=== PATIENT | female | born 1985 | race Caucasian/White ===

== ENCOUNTER → 2017-03-31 10:16 | Outpatient (CLI) | payer SELFPAY ==
[2017-03-31 12:10] LABS: Absolute Lymphocyte Count 1.43 X10^3/ul (0.83-4.51); Absolute Neutrophil Count 3.9 X10^3/uL (2.0-7.7); Basophil# 0.02 X10^3/uL; Basophil% 0.3 % (0-1); Eosinophils% 1.7 % (0-5); Hematocrit 43.2 % (37-47); Hemoglobin 14.2 g/dl (12.0-15.0); Lymphocyte # 1.43 X10^3/ul (4.0); Lymphocyte % 23.8 % (19-41); Mean Corp Hgb Conc 32.9 g/gl (32-36); Mean Corpuscular Hgb 27.6 pg (27.0-32.0); Mean Corpuscular Volume 83.9 fL (81-99); Mean Platelet Vol. 9.6 fl (6.2-12.0); Monocyte# 0.55 X10^3/uL; Monocyte% 9.1 % (0-10); Neutrophil # 3.92 X10^3/uL (2.7-7.7); Neutrophil % 65.1 % (47-70); Platelet Count 367 K/mm3 (150-450); RBC Distribution Width CV 13.1 % (11.6-14.6); RBC Distribution Width SD 39.2 fl (35.1-43.9); Red Blood Count 5.15 M/mm3 (4.2-5.4)
[2017-03-31 12:11] LABS: POSITIVE COUNT NO; POSITIVE DIFFERENTIAL NO; POSITIVE MORPHOLOGY NO
[2017-03-31 13:00] LABS: Free T3 2.7 pg/mL (2.18-3.98); T4 Free Direct 1.03 ng/dL (0.76-1.46); Thyroid Stim Hormone (TSH) 2.78 uIU/mL (0.358-3.74)
[2017-04-01 14:08] LABS: ANTINUCLEAR ANTIBODIES DIRECT Positive (Negative); Anti-Centromere B Ab <0.2 AI (0.0-0.9); Anti-Chromatin <0.2 AI (0.0-0.9); Anti-Jo <0.2 AI (0.0-0.9); Anti-Scleroderma-70 AB <0.2 AI (0.0-0.9); RNP Ab 6.2 AI (0.0-0.9); SJOGREN'S Anti-SS-A test < 0.2 AI (0.0-0.9); SJOGREN'S Anti-SS-B test 0.2 AI (0.0-0.9); Smith Ab <0.2 AI (0.0-0.9)
[2017-04-01 14:47] LABS: Anti-dsDNA Ab 1 IU/mL (0-9)
== END ==
PROVIDERS: Family Provider Family Medicine; PCP Family Medicine; Visit Provider Family Medicine
DX: R41.9 Unspecified symptoms and signs involving cognitive functions and awareness (principal); G25.3 Myoclonus; R13.10 Dysphagia, unspecified; E03.9 Hypothyroidism, unspecified; R53.83 Other fatigue
CPT/HCPCS: 36415; 84439; 84443; 84481; 85025; 86038; 86225; 86235

== ENCOUNTER → 2017-05-01 11:49 | Outpatient (CLI) | payer SELFPAY ==
[2017-05-01 13:16] LABS: CPK Total, Creatine Kinase 46 U/L (26-192)
== END ==
PROVIDERS: Family Provider Family Medicine; PCP Family Medicine; Visit Provider Family Medicine
DX: G25.3 Myoclonus (principal); R76.8 Other specified abnormal immunological findings in serum
CPT/HCPCS: 36415; 82550

== ENCOUNTER 2021-10-04 08:35 | Outpatient (CLI) | payer MEDICAID, SELFPAY ==
[2021-10-04 08:58] VITALS: BP 101/57; PULSE 118; TEMP 37.2
[2021-10-04 09:02] VITALS: BMI 27.8
[2021-10-04 09:50] LABS: ROM Internal Control Test YES-OK TO RESULT pt. (Internal QC); ROM Patient Test Negative (Negative)
--- NOTE | 2021-10-13 07:33 | OB.TRI.HP_ITS ---
HPI - General General Date of Service: 10/04/21 HPI Narrative LETITIA MANRIQUEZ, is a 36 F who presents with N/V and headaches. Maternal Data Information Final DAVID: 10/20/21 Gestational age: 37&5 [facility] Medical History (Updated 10/13/21 @ 07:[address] Stevie Naylor MD) COVID-19 affecting in third trimester Nausea and vomiting during Home Medications 1 tab PO/SL DAILY 10/04/21 [History Last Taken 10/03/21 12:00] hydroxychloroquine 200 mg tablet (Plaquenil) 200 mg PO DAILY 10/04/21 [History Last Taken 10/03/21 21:00] liver extract 3 tab PO BID 10/04/21 [History Last Taken 10/03/21 21:00] Allergy/AdvReac Type Severity Reaction Status Date / Time Pertussis Vaccines Allergy Unknown Verified 11/11/14 17:24 doxycycline AdvReac Pain in Verified 10/04/21 09:04 joints Social History Smoking Status: Never smoker NST FHR Rate Baby A Baseline: 150 Variability:: Moderate Accelerations:: 15 x 15 Decelerations:: Variable NST Reactive:: Yes Uterine Activity:: Irregular Assessment & Plan (1) Nausea and vomiting during : (2) COVID-19 affecting in third trimester: COMMENT: 37&5 PLAN: Reactive NTS for COVID in
== END 2021-10-04 10:31 | disposition home or self-care (01) ==
LOC: WPOUT 08:45 → WP 08:45
PROVIDERS: PCP Family Medicine; Visit Provider Obstetrics & Gynecology
DX: O98.513 Other viral diseases complicating pregnancy, third trimester (principal); U07.1 COVID-19; Z3A.37 37 weeks gestation of pregnancy; O36.8330 Maternal care for abnormalities of the fetal heart rate or rhythm, third trimester, not applicable or unspecified
CPT/HCPCS: 59025; 59050; 84112; 87426; 99218; G0378

== ENCOUNTER 2021-10-22 09:22 | Inpatient (IN) | payer MEDICAID, SELFPAY ==
[2021-10-22] VITALS (17 sets, daily range): BP systolic 93–120; BP diastolic 52–77; PULSE 64–91; RESP 16; TEMP 35.8–36.8; O2SAT 97–100; BMI 27.6
[2021-10-22 10:23] LABS: Absolute Lymphocyte Count 0.86 X10^3/uL (0.83-4.51); Absolute Neutrophil Count 4.4 X10^3/uL (2.0-7.7); Basophil# 0.01 X10^3/uL; Basophil% 0.2 % (0-1); Eosinophil# 0.02 X10^3/uL; Eosinophils% 0.4 % (0-5); Hematocrit 32.8 % (37-47); Hemoglobin 10.6 g/dL (12.0-15.0); Lymphocyte # 0.86 X10^3/ul (0.83-4.51); Lymphocyte % 15.1 % (19-41); Mean Corp Hgb Conc 32.3 g/dL (32-36); Mean Corpuscular Volume 80.6 fL (81-99); Mean Platelet Vol. 10.8 fl (6.2-12.0); Monocyte# 0.45 X10^3/uL; Monocyte% 7.9 % (0-10); NRBC Flagged by Analyzer 0 % (0-5); Neutrophil # 4.35 X10^3/uL (2.7-7.7); Platelet Count 167 K/mm3 (150-450); RBC Distribution Width CV 13.4 % (11.6-14.6); RBC Distribution Width SD 38.4 fl (35.1-43.9); Red Blood Count 4.07 M/mm3 (4.2-5.4); White Blood Count 5.7 K/mm3 (4.4-11.0)
[2021-10-22] MEDS: Lactated Ringers 1,000 ML 999 ML IV (10:26)
[2021-10-22] MEDS: Sodium Citrate/Citric Acid 30 ML UDC PO (10:31)
[2021-10-22] MEDS: Acetaminophen 500 MG Tablet 1000 MG PO ×3 (10:31→22:38)
[2021-10-22] MEDS: Lactated Ringers 1,000 ML 150 ML IV (11:10)
--- NOTE | 2021-10-22 12:03 | HP.PCM.OB_ITS ---
HPI - General General Date of Admission: 10/22/21 Date of Service: 10/22/21 HPI Narrative LETITIA MANRIQUEZ, is a 36 F who presents for repeat . Maternal Data Information Final DAVID: 10/20/21 Gestational age: 40&2 PFSH PFSH Medical History Asthma COVID-19 affecting in third trimester Mixed connective tissue disease Nausea and vomiting during hemorrhage Request for sterilization Home Medications 1 tab PO/SL DAILY 10/04/21 [History Last Taken 10/03/21 12:00] hydroxychloroquine 200 mg tablet (Plaquenil) 200 mg PO DAILY 10/04/21 [History Last Taken 10/03/21 21:00] liver extract 3 tab PO BID 10/04/21 [History Last Taken 10/03/21 21:00] Allergy/AdvReac Type Severity Reaction Status Date / Time Pertussis Vaccines Allergy Unknown Verified 11/11/14 17:24 doxycycline AdvReac Pain in Verified 10/04/21 09:04 joints Surgical History Previous section Social History Smoking Status: Never smoker History Elective abortions Hx Para 5 Spontaneous abortions Hx # Term Pregnancies Ectopic pregnancies Hx # Pregnancies Multiple births # of living children Vital Signs Vital Signs Vital Signs: 10/22/21 09:35 10/22/21 09:35 10/22/21 09:40 Temperature Temperature Source Pulse Rate 86 83 Respiratory Rate Blood Pressure Blood Pressure Mean Blood Pressure Source Blood Pressure Position Blood Pressure Location Pulse Ox 100 Oxygen Delivery Method 10/22/21 09:40 10/22/21 10:52 Temperature 97.6 F L Temperature Source Temporal Pulse Rate 83 Respiratory Rate 16 Blood Pressure 120/69 Blood Pressure Mean 86 Blood Pressure Source Monitor Blood Pressure Position Sitting Blood Pressure Location Left Arm Pulse Ox 100 100 Oxygen Delivery Method Room Air Weight Weight: 161 lb Body Mass Index (BMI) 27.6 Physical Exam Const alert and oriented x3 General Appearance: cooperative Chest inspection of chest normal GI soft to palpation, non-tender and non-distended Inspection: gravid Labs Labs Labs: Blood Type B POSITIVE Antibody Screen NEGATIVE Hct 32.8 % (37-47) L Hgb 10.6 g/dL (12.0-15.0) L Miscellaneous Test See [facility] H&P Assessment & Plan (1) Request for sterilization: COMMENT: @ 40&2 PLAN: Counseled on R/B/A including risks of regret & failure. Patient wishes to proceed with bilateral salpingectomy. (2) Previous section: PLAN: Counseled on R/B/A of MOD and patient wishes to proceed with repeat c- section. Informed consent signed. Plan for routine PP care (3) Mixed connective tissue disease:
--- NOTE | 2021-10-22 12:08 | EX.PCM.OBRPT ---
Maternal Data Information Final DAVID: 10/20/21 Gestational age: 40&2 Details Operative Information Date of Procedure: 10/22/21 Pre-Operative Diagnosis: (1) Prior section (2) Sterilization request Post-Operative Diagnosis: Same Indications for : Repeat Elective and Desires elective sterilization Indications Narrative: The patient was taken to the operating room where spinal anesthesia was placed & found to be adequate. She was prepped and draped in the dorsal supine position with a leftward tilt. A Pfannenstiel skin incision was made approximately 2 cm above the symphysis pubis and carried through to the underlying fascia with the scalpel. The fascia was incised incised in the midline and extended laterally with the Hi scissors. The rectus muscles were in the midline and the peritoneum was entered carefully and bluntly. The peritoneal incision was stretched and the bladder blade was inserted. Vesicouterine peritoneum was tented up, incised & then bladder flap created gently. The uterine incision was made in a low transverse fashion with the scalpel and extended superiorly and inferiorly with blunt dissection. The infant's head was brought to the incision in the flexed position and delivered without difficulty. The head was gently guided to allow delivery of the anterior and posterior shoulders. The body then delivered with fundal pressure in the standard fashion. The 3VC cord was clamped and cut in delayed fashion. The infant was handed off to the waiting pediatric care coordinator. The placenta was delivered with fundal massage and gentle traction in the standard fashion. The uterus was exteriorized and cleared of clots and debris. The uterine incision was closed with #1 Vicryl suture in a running locked fashion. Monocryl suture was used in an imbricating fashion. The incision was examined and was found to be hemostatic. Attention was then turned to the fallopian tubes. The right fallopian tube was grasped, cauterized & excised using the ligasure. Excellent hemostasis of the right tubal excision site was confirmed. Then the left fallopian tube was grasped, cauterized & excised using the ligasure. Excellent hemostasis of the left tubal excision site was confirmed. The uterus was returned to the abdominal cavity. After irrigating Oralia was placed over the uterine incision as some areas were denuded (but hemostatic). Oralia was also placed over the tubal excision sites which were again confirmed to be hemostatic. The peritoneum was closed with vicryl suture in running fashion The rectus muscle was examined and any bleeding was Bovie cauterized. The fascia was closed with PDS suture in a running standard fashion. The subcutaneous tissue was examining and any bleeding was Bovie cauterized. The subcutaneous tissue was reapproximated with interrupted sutures. The skin was closed in a subcuticular fashion by the SENIOR USER EXPERIENCE ARCHITECT while I was present in the labor & delivery unit. The remainder of the procedure was performed by me with assistance. All sponge, lap, and needle counts were correct. The patient was taken to her room for recovery in a stable condition. Classification: Scheduled Procedure Type: low transverse lead accountant #1: Kadi Mccollum Type of Anesthesia: Spinal Antibiotic Given: Ancef 2 grams IV x1 Drain: Calix to straight drain Estimated Blood Loss: 800ml Fluids Replaced: 800ml Procedure Start Time: 12:25 Procedure Stop Time: 13:20 Findings Description of Procedure: Normal maternal uterus and adnexa Presentation: Positive for Vertex Amniotic Membrane Rupture Type: Artificial Amniotic Fluid Description: Clear Placental Delivery Description: Expressed Placenta Disposition: [facility] Specimen(s) Sent to Pathology: bilateral fallopian tubes Cord Vessel Description: 3 Vessels Cord Entanglement: None A Gender: Female (Laila, weight = 4035g) (1 minute): 9 (5 minute): 9 Delayed Cord Clamping: Yes Complications Complications: None
[2021-10-22] MEDS: Cefazolin 2 GM in 0.9% Normal Saline 100 ML IV (12:15)
[2021-10-22] MEDS: Oxytocin 30 units/NS 500 ml 30 UNITS/500 ML IV.SOLN 167 UNITS IV (13:35)
--- NOTE | 2021-10-22 13:41 | FALS_PTH ---
PATIENT: LETITIA MANRIQUEZ LOC: [facility] U#:[id number] AGE/SX: 36/F ROOM: WP005 RE10/22/[address]: Dr. Stevie Naylor MD : 1985 BED: 1 DIS: 10/23/2021 SPEC #: [id number] RECD: 10/23/21 08:12 STATUS: TORRIE KELSEY #: [id number] LEATHA: 10/22/21 13:[address]: Stevie Naylor DEPT: SURGICAL PATHOLOGY RECD BY: Nas Suero ENTERED: 10/23/21 08:14 SP TYPE: FALL TUBES OTHR DR: Dr. Semaj Bruno DO Tissues: Fallopian tube Procedures: Surgery Specimen Level IV HEADER OPERATION: Tubal ligation PRE-OP DIAGNOSIS: Sterilization TISSUE SUBMITTED: Fallopian tubes, tag on right MICROSCOPIC DIAGNOSIS Bilateral fallopian tubes, salpingectomy: Left fallopian tube with mild chronic inflammation and focal reactive mesothelial proliferation. Right fallopian tube with focal decidual changes, chronic inflammation and reactive mesothelial proliferation. KALI:abbi 10/25/2021 COMMENT Case has been reviewed in consultation with Dr. Dixon who concurs with the above diagnosis. IDC:ZEN MICROSCOPIC DESCRIPTION Slides are reviewed. GROSS DESCRIPTION Received in fixative is one container labeled with the patient's name and designated bilateral fallopian tubes. The specimen consists of two fallopian tubes with an average length of 9.5 cm and has an average diameter of 1 cm. Both fallopian tubes have normal fimbriated ends. No mass lesions are identified. Speech Clinician sections are submitted in two cassettes as follows: 1 - fallopian tube without suture, 2 - fallopian tube with suture. / ZEN:abbi 10/23/2021 The rest of the specimen is submitted in six more cassettes as follows: 3 - fimbrial end, one tube, 4??fimbrial end, second tube, 5 & 6 - tube without suture, 7 & 8 - tube with suture. / KALI:abbi 10/24/2021 TC:5 CPT: 78671 x2
[2021-10-22 13:49] LABS: Pathology Specimen OB SEE PATHOLOGY REPORT
[2021-10-22] MEDS: Ketorolac 30 MG/ML Syringe IV ×2 (14:21→20:41)
[2021-10-22] MEDS: Lactated Ringers 1,000 ML 100 ML IV (15:58)
[2021-10-22] MEDS: Hydroxychloroquine 200 MG Tablet PO (22:39)
[2021-10-23 00:30] VITALS: BP 99/64; PULSE 85; RESP 16; TEMP 36.3; O2SAT 99
[2021-10-23] MEDS: 0.9% Saline Lock 10 ML Syringe IV ×2 (02:32→08:33)
[2021-10-23] MEDS: Ketorolac 30 MG/ML Syringe IV ×2 (02:32→08:32)
[2021-10-23 04:43] VITALS: BP 95/56; PULSE 73; RESP 16; TEMP 36.3; O2SAT 97
[2021-10-23] MEDS: Acetaminophen 500 MG Tablet 1000 MG PO ×2 (04:48→10:37)
[2021-10-23 04:58] LABS: Hematocrit 28.1 % (37-47); Hemoglobin 8.9 g/dL (12.0-15.0); Mean Corp Hgb Conc 31.7 g/dL (32-36); Mean Corpuscular Hgb 26.3 pg (27.0-32.0); Mean Corpuscular Volume 83.1 fL (81-99); Mean Platelet Vol. 10.2 fl (6.2-12.0); Platelet Count 151 K/mm3 (150-450); RBC Distribution Width CV 13.3 % (11.6-14.6); RBC Distribution Width SD 39.8 fl (35.1-43.9); Red Blood Count 3.38 M/mm3 (4.2-5.4); White Blood Count 7.8 K/mm3 (4.4-11.0)
[2021-10-23 07:47] VITALS: BP 101/57; PULSE 79; RESP 15; TEMP 36.2; O2SAT 96
--- NOTE | 2021-10-23 08:18 | DCINST_ITS ---
Discharge Instructions Diet Discharge Diet: No restrictions Activity Discharge Activity: May Not Drive (Until you feel strong enough to slam on a brake or turn a steering wheel sharply) and May Shower May resume sexual activity in: 6 weeks Ice area for (Minutes): 15 Weight Bearing Status: Weight bearing as tolerated Lifting Restrictions: Nothing heavier than baby Dressing / Incision Call your doctor if your incision/area has: Continuous Slow Oozing, Sudden Increased Bleeding, Increased Pain/ Swelling, Increased Redness, Foul Smelling Discharge and Swelling at the incision site Call your doctor if you observe: Fever of 101 or Higher, Coldness, Increased Pain, Numbness or Tingling, Change in Color, Inability to urinate, Inability to have a bowel movement, Using more than 1 pad per hour, Shortness of breath, Dizziness, Fainting spells, Swelling in the ankles, Chest pain, Increased palpitations (irregular heartbeat), Calf discomfort and Uncontrolled pain Suture Line Care: Avoid Pulling/Pushing and Avoid Pinching/Bending Remove Dressing in: 4 days Cleanse incision/area with: Soap & Water Follow Up Care Please Follow Up With: Stevie Naylor MD When: 1 week incision check 6 weeks visit Test Results: Test results from this visit will be discussed in further detail at your follow- up appointment, if applicable. Discharge Plan Admission Admit Date/Time: 10/22/21 09:22 Primary Reason for Your Visit: delivery Attending Provider: Stevie Naylor Primary Care Provider: Semaj Bruno Instructions Patient Instructions: After a Discharge Orders/Prescriptions Prescriptions: New oxycodone-acetaminophen [Endocet] 5-325 mg tablet 1 tab PO Q6H PRN (Reason: pain) 7 Days Qty: 10 0RF ibuprofen 600 mg tablet 600 mg PO Q6H PRN (Reason: pain) Qty: 30 0RF docusate sodium [Colace] 100 mg capsule 100 mg PO BID Qty: 30 0RF Continued hydroxychloroquine [Plaquenil] 200 mg Tablet 200 mg PO DAILY liver extract Tablet 3 tab PO BID 1 tab PO/SL DAILY Referrals / Follow Up: Semaj Bruno DO [Primary Care Provider] - Disposition Disposition (needs filled in before D/C Order can be placed): Home, Self Care
--- NOTE | 2021-10-23 08:20 | PCM.PN.OB ---
Subjective Subjective Pt doing well. Pain well controlled. Ambulating and voiding without difficulty. Rodrigue reg diet without N/V. She denies lightheadedness and dizziness. Lochia normal. without complaints. She would like to go home today. Objective Data Objective Data Vital Signs: Vital Signs Temp Pulse Resp BP Pulse Ox O2 Del Method 97.1 F L 79 15 101/57 L 96 Room Air 10/23/21 07:47 10/23/21 07:47 10/23/21 07:47 10/23/21 07:47 10/23/21 07:47 10/23/21 07:47 Oxygen Delivery Method Room Air Weight: 161 lb Body Mass Index (BMI) 27.6 Intake & Output: Intake and Output for Last 24 Hours 10/21/21 10/22/21 10/23/21 23:59 23:59 23:59 Intake Total 2865.33 / 2865.33 903.33 / 903.33 Output Total 1100 / 1100 700 / 700 Balance 1765.33 / 1765.33 203.33 / 203.33 Lab / Micro Data Result Diagrams: 10/23/21 04:50 Labs: Laboratory Results - last 24 hr 10/22/21 10:10: WBC 5.7, RBC 4.07 L, Hgb 10.6 L, Hct 32.8 L, MCV 80.6 L, MCH 26.0 L, MCHC 32.3, RDW Std Deviation 38.4, RDW Coeff of René 13.4, Plt Count 167, MPV 10.8, Immature Gran % (Auto) 0.400, Neut % (Auto) 76.0 H, Lymph % (Auto) 15.1 L, [place] % (Auto) 7.9, Eos % (Auto) 0.4, Baso % (Auto) 0.2, Absolute Neuts (auto) 4.4, Absolute Lymphs (auto) 0.86, Nucleated RBC % 0 10/22/21 10:10: Blood Type B POSITIVE, Antibody Screen NEGATIVE 10/23/21 04:50: WBC 7.8, RBC 3.38 L, Hgb 8.9 L, Hct 28.1 L, MCV 83.1, MCH 26.3 L, MCHC 31.7 L, RDW Std Deviation 39.8, RDW Coeff of René 13.3, Plt Count 151, MPV 10.2 Physical Exam Const alert and no apparent distress General Appearance: comfortable HEENT normocephalic Resp normal respiratory effort GI soft to palpation and non-distended GI Narrative: ATTP, dressing c/d/i, FF@U-1 Extremity normal to inspection and no calf tenderness Assessment & Plan (1) Delivery by section: PLAN: She is POD#1 s/p RLTCS with sterilization. Doing well. Reviewed blood work with patient and she denies any symptoms of anemia. EBL 800 cc at time of delivery per op report, and lochia normal. Discussed ok for discharge later today if she does ok ambulating throughout the day today, and she is to report symptoms of anemia. If symptoms of anemia today, will stay overnight to recheck CBC in AM. She desires discharge today. VSS and meeting milestones. Discharge instructions reviewed. Has follow up next week.
--- NOTE | 2021-10-23 08:47 | NURSING ---
Pt states she voided in hat around 0500 and nightshift nurse measured and threw away the hat from inside the toilet. 2nd void complete.
[2021-10-23] MEDS: Senna/Docusate Sodium 1 Tablet PO (10:35)
[2021-10-23 12:26] VITALS: BP 96/63; PULSE 86; RESP 16; TEMP 36.3
--- NOTE | 2021-10-30 15:17 | NURSING ---
Follow up phone call done today. Doing much better now that she has received a blood patch, needed to go to ER night. Instant relief after getting the blood patch. So much easier than my first c/s as far as the recovery goes (aside from the headache). Baby is doing well, was almost back to weight, loved Viviane she was awesome. Everyone was great during our stay too. Everyone was friendly. Good atmosphere in the hospital. 2020 C/S was at [facility]. Everyone was a lot friendlier at [place].
== END 2021-10-23 15:20 | disposition home or self-care (01) | DRG 539 ==
PROVIDERS: Admitting Provider Obstetrics & Gynecology; PCP Family Medicine; Visit Provider Obstetrics & Gynecology
PROC: 10D00Z1 Extraction of Products of Conception, Low, Open Approach (ICD-10-PCS; CPT 59514; principal; 2021-10-22 11:45)
DX: O34.219 Maternal care for unspecified type scar from previous cesarean delivery (principal); M35.1 Other overlap syndromes; J45.909 Unspecified asthma, uncomplicated; Z37.0 Single live birth; O99.52 Diseases of the respiratory system complicating childbirth; Z30.2 Encounter for sterilization; O99.892 Other specified diseases and conditions complicating childbirth; Z86.16 Personal history of COVID-19; Z3A.40 40 weeks gestation of pregnancy
CPT/HCPCS: 59025; 59050; 85025; 85027; 86850; 86900; 86901; 88302; 88305; 99218; J7120; A4216; G0378; J2405

== ENCOUNTER 2021-10-24 19:26 | Emergency (ER) | payer MEDICAID, SELFPAY ==
[2021-10-24 19:27] VITALS: BP 140/88; PULSE 93; RESP 15; TEMP 36.4; O2SAT 98; BMI 24.0
--- NOTE | 2021-10-24 19:35 | US_ITS ---
STUDY: VENOUS DOPPLER ULTRASOUND - RIGHT LOWER EXTREMITY REASON FOR EXAM: Female, 36 years old. LEG PAIN AND SWELLING RT POSTERIOR CALF PAIN TECHNIQUE: Ultrasound evaluation of the deep vein system to include guthrie-scale imaging and compression was performed. Guthrie-scale imaging and Doppler sonographic evaluation, including duplex spectral analysis and qualitative color flow sonography, was performed. COMPARISON: None. FINDINGS: Common Femoral Vein: Normal compression, spontaneity and augmentation. Normal color Doppler. Common Femoral Vein/Greater Saphenous Junction: Normal compression, spontaneity and augmentation. Normal color Doppler. Superficial Femoral Proximal: Normal compression, spontaneity and augmentation. Normal color Doppler. Superficial Femoral Middle: Normal compression, spontaneity and augmentation. Normal color Doppler. Superficial Femoral Distal: Normal compression, spontaneity and augmentation. Normal color Doppler. Popliteal Vein: Normal compression, spontaneity and augmentation. Normal color Doppler. Posterior Tibial Vein: Normal compression, spontaneity and augmentation. Normal color Doppler. Peroneal Vein: Normal compression, spontaneity and augmentation. Normal color Doppler. There is no demonstrated deep venous thrombosis. US/Venous Duplex Imag/Limited/Uni IMPRESSION: There is no demonstrated deep venous thrombosis. Electronically Signed: Vu Castano MD at 20:11 EDT ,
--- NOTE | 2021-10-24 20:25 | ED.VIS.LOWEX ---
HPI History of Present Illness Chief Complaint: Lower Extremity Injury Informant: patient and spouse/S.O. Narrative Narrative: She hadPatient presents with right calf cramping. This is the only cramp that she has. Delivery by 2 days ago. She did have spinal anesthesia. She has also been scheduled for a blood patch. She has been having headaches. But her headache is completely positional. If she lays flat it is gone. If she sits up it occurs again. This is her sixth delivery. She has never had eclampsia or preeclampsia. The incision is not bothering her. She is not having chest pain or dyspnea. She is not having nausea vomiting. She does not have generalized malaise. She has some edema more on the right leg than the left but it is not worsening. PFSH PFSH Medical History Asthma COVID-19 affecting in third trimester Mixed connective tissue disease Nausea and vomiting during hemorrhage Request for sterilization Home Medications 1 tab PO/SL DAILY 10/04/21 [History Last Taken 10/03/21 12:00] hydroxychloroquine 200 mg tablet (Plaquenil) 200 mg PO DAILY 10/04/21 [History Last Taken 10/03/21 21:00] liver extract 3 tab PO BID 10/04/21 [History Last Taken 10/03/21 21:00] docusate sodium 100 mg capsule (Colace) 100 mg PO BID #30 caps 10/23/21 [Rx Last Taken Unknown] ibuprofen 600 mg tablet 600 mg PO Q6H PRN pain #30 tabs 10/23/21 [Rx Last Taken Unknown] oxycodone-acetaminophen 5 mg-325 mg tablet (Endocet) 1 tab PO Q6H PRN pain 7 days #10 tabs 10/23/21 [Rx Last Taken Unknown] Allergy/AdvReac Type Severity Reaction Status Date / Time Pertussis Vaccines Allergy Unknown Verified 11/11/14 17:24 doxycycline AdvReac Pain in Verified 10/04/21 09:04 joints Surgical History Previous section Social History Smoking Status: Never smoker ROS ROS ED Constitutional Constitutional ED: Denies chills, fever(s) or subjective Eyes Eyes: Denies blurry vision, change in vision or diplopia ENT ENT ED: Denies rhinorrhea Cardiovascular Cardiovascular: Denies chest pain, palpitations or racing heartbeat Respiratory/Chest Respiratory/Chest: Denies cough or dyspnea Gastrointestinal Gastrointestinal: Denies nausea or vomiting Genitourinary Genitourinary ED: Denies hematuria Musculoskeletal Musculoskeletal: Reports other Details: Right calf pain per history of present illness. ; Denies back pain or neck pain Integumentary Denies abscess, Abrasions or rash Neurologic Neurologic: Reports headache(s); Denies paresthesias or weakness Endocrine Endocrinology: Denies polydipsia or polyuria Hematologic/Lymphatic Hematologic/Lymphatic: Denies easy bleeding or easy bruising Allergic/Immunologic Allergic/Immunologic ED: Denies urticaria EXAM Physical Exam Const Vital Signs: 10/24/21 19:27 10/24/21 20:59 10/24/21 21:23 Temperature 97.6 F L Temperature Source Temporal Pulse Rate 93 Respiratory Rate 15 Blood Pressure 140/88 H 115/77 110/78 Blood Pressure Mean 105 89 88 Pulse Ox 98 Oxygen Delivery Method Room Air Positive well nourished and well developed Constitutional Narrative: Patient is nontoxic. She is sitting upright at this time. However, that is for convenience of breast-feeding. It does exacerbate her headache a bit. General Appearance ED: well developed and NAD HEENT Reports moist mucous membranes atraumatic Neck full ROM and supple Chest Wall inspection of chest normal Resp normal respiratory effort, no retractions and clear to auscultation bilaterally Resp Narrative: No pain with deep breath. Auscultation: Negative for rales, rhonchi or wheezes Cardio regular rate, regular rhythm and no murmurs GI non-tender and non-distended Back/Spine no CVA tenderness Extremity Extremity Narrative: Patient has a trace amount of edema to both feet and ankles but it really does not go up higher. It might be just slightly more on the right than the left. No distended veins. No cord is felt. No notable asymmetry 10 cm below tibial tuberosity. Neuro oriented x3 Neuro Narrative: Reflexes are only about +1 in both patellar and Achilles areas. She does not have hyperreflexia. Sensorium / Orientation: alert Psych mental status grossly normal Skin Lesions: no lesions Rashes: no rashes MDM MDM MDM Narrative Medical decision making narrative: Patient had multiple blood pressure checks. Her blood pressure is way down now. She has no other symptoms consistent with preeclampsia. She does have a headache but it is completely positional. Ultrasound showed no DVT. Plan will be to get her home. She has an appointment for blood patch at 8:00 in the morning. Radiography Diagnostic Testing: Clinical Impression(s) from Imaging Studies Venous Duplex 10/24/21 19:35 IMPRESSION: There is no demonstrated deep venous thrombosis. Electronically Signed: Vu Castano MD at 20:11 EDT , Discharge Plan Triage Chief Complaint: Lower Extremity Injury ED Provider: Sanjeev Cuadra Dx/Rx/DC Orders Clinical Impression: Cramps of right lower extremity, Spinal headache Instructions: ED Leg Spasm, ED Headache After Spinal Tap ... Prescriptions: No Action oxycodone-acetaminophen [Endocet] 5-325 mg tablet 1 tab PO Q6H PRN (Reason: pain) 7 Days Qty: 10 0RF ibuprofen 600 mg tablet 600 mg PO Q6H PRN (Reason: pain) Qty: 30 0RF docusate sodium [Colace] 100 mg capsule 100 mg PO BID Qty: 30 0RF hydroxychloroquine [Plaquenil] 200 mg Tablet 200 mg PO DAILY liver extract Tablet 3 tab PO BID 1 tab PO/SL DAILY Primary Care Provider: Semaj Bruno Referrals: Semaj Bruno DO [Primary Care Provider] - 3-5 Days Activity Restrictions/Additional Instructions: Follow-up with appointment for blood patch in the morning. Disposition Disposition: Home, Self Care
[2021-10-24 20:59] VITALS: BP 115/77
[2021-10-24 21:23] VITALS: BP 110/78
== END 2021-10-24 22:04 | disposition home or self-care (01) ==
PROVIDERS: Emergency Provider Emergency Medicine; PCP Family Medicine; Visit Provider Emergency Medicine
DX: O99.355 Diseases of the nervous system complicating the puerperium (principal); Z86.16 Personal history of COVID-19; J45.909 Unspecified asthma, uncomplicated; M35.1 Other overlap syndromes; O99.53 Diseases of the respiratory system complicating the puerperium; O99.893 Other specified diseases and conditions complicating puerperium; R25.2 Cramp and spasm; G97.1 Other reaction to spinal and lumbar puncture
CPT/HCPCS: 93971; 99282

== ENCOUNTER 2021-10-25 08:01 | Day surgery (SDC) | payer MEDICAID, SELFPAY | END 2021-10-25 09:05 | disposition home or self-care (01) | PROVIDERS: PCP Family Medicine; Referring Provider Anesthesiology; Visit Provider Anesthesiology | PROC: 3E0R3GC Introduction of Other Therapeutic Substance into Spinal Canal, Percutaneous Approach (ICD-10-PCS; CPT 62273; principal; 2021-10-25 07:55) | DX: O89.4 Spinal and epidural anesthesia-induced headache during the puerperium (principal) | CPT/HCPCS: 62273; J7120 ==

== ENCOUNTER 2022-12-18 13:31 | Outpatient (RCR) | payer MEDICAID, SELFPAY ==
--- NOTE | 2023-06-01 11:25 | HP.PT.NRP ---
Patient Information Patient Information: LETITIA MANRIQUEZ was seen in my office for initial evaluation on 12/18/22. The following Plan of Care was established for this patient: Last Seen Last Seen: This patient was last seen in our office . Pertinent comments regarding their Physical therapy will appear below: Dry needling chart d/c At this point I will be discontinuing this patient from physical therapy. I would be happy to see this patient again in the future if found appropriate by the physician. Thank you! Niru Beck, RAJT Balance/Gait/Functional tests Balance/Special Test Scores Quick DASH Score: 25.0000
== END 2022-12-18 19:00 | disposition home or self-care (01) ==
LOC: PT 13:31
PROVIDERS: PCP Family Medicine
DX: Z00.00 Encounter for general adult medical examination without abnormal findings (principal)

== ENCOUNTER 2023-07-23 13:25 | Outpatient (RCR) | payer SELFPAY ==
--- NOTE | 2023-10-27 18:04 | HP.PT.NRP ---
Patient Information Patient Information: LETITIA MANRIQUEZ was seen in my office for initial evaluation on . The following Plan of Care was established for this patient: Last Seen Last Seen: This patient was last seen in our office . Pertinent comments regarding their Physical therapy will appear below: Dry Needling- d/c chart At this point I will be discontinuing this patient from physical therapy. I would be happy to see this patient again in the future if found appropriate by the physician. Thank you! RAJ SkeltonT
== END 2023-07-23 19:00 | disposition home or self-care (01) ==
LOC: PT 13:25
PROVIDERS: PCP Family Medicine
DX: M25.512 Pain in left shoulder (principal)